=== PATIENT | female | born 2000 | race African-American/Black ===

== ENCOUNTER 2021-05-07 15:55 | Inpatient (IN) | payer OTHER ==
[2021-05-07] MEDS ORDERED: PROMETHAZINE HCL 25 MG/1 ML VIAL IVPUSH ONE (17:50)
[2021-05-07] MEDS ORDERED: BUTORPHANOL TARTRATE 1 MG/ML VIAL IVPB PRN (17:50)
[2021-05-07 17:52] VITALS: BMI 27.0
[2021-05-07] MEDS ORDERED: DEXTROSE 5%-LACTATED RINGERS 1,000 ML IV ONE (18:15)
[2021-05-07 19:08] LABS: BASO % 0.3 % (0-2.0); EOS % 2.1 % (0-4.5); HEMATOCRIT 29.7 % (32.4-45.2); LYMPH % 15.3 % (8-40); MCH 20.3 pg (25.7-33.7); MCHC 30.4 g/dl (32.0-36.0); MEAN CELL VOLUME 66.7 fl (80-96); NEUT % 75.3 % (42.8-82.8); PLATELET COUNT 225 10^3/uL (134-434); RBC 4.46 M/mm3 (3.60-5.2); RDW 20.1 % (11.6-15.6); WHITE BLOOD COUNT 12.4 K/mm3 (4.0-10.0)
[2021-05-07 19:22] LABS: INR 0.95 (0.83-1.09); PROTHROMBIN TIME (PATIENT) 11.7 SEC (9.7-13.0)
[2021-05-07 19:24] LABS: ACTIVATED PTT 27.3 SECONDS (25.2-36.5)
[2021-05-07 19:34] LABS: BLOOD UREA NITROGEN 6.4 mg/dL (7-18); CALCIUM 8.6 mg/dL (8.5-10.1)
[2021-05-07 19:38] LABS: CREATININE 0.5 mg/dL (0.55-1.3)
[2021-05-07] MEDS ORDERED: OXYTOCIN 30 UNITS in 0.9% NS 30 UNIT/500 ML INFUS.BAG IVPB SCH (20:15)
[2021-05-07 20:57] LABS: ANISOCYTOSIS 2+; MACROCYTOSIS 0; PLATELET ESTIMATE NORMAL; TARGET CELLS 1+
[2021-05-08] MEDS ORDERED: BUTORPHANOL TARTRATE 2 MG/ML VIAL ONE (00:48)
[2021-05-08] MEDS ORDERED: PROMETHAZINE HCL 25 MG/1 ML VIAL ONE (00:48)
[2021-05-08] MEDS ORDERED: AMPICILLIN - 2 GM in SODIUM CHLORIDE 100 ML IVPB ONE (01:30)
[2021-05-08] MEDS ORDERED: AMPICILLIN SODIUM 2 GM VIAL ONE (01:45)
[2021-05-08] MEDS ORDERED: AMPICILLIN SODIUM 1 GM VIAL ONE ×2 (06:02→09:54)
[2021-05-08] MEDS: ELECTROLYTE-148 SOLN 1,000 ML IV SCH ×2 (09:00→10:25)
[2021-05-08] MEDS ORDERED: PCA PUMP NR ONE (09:02)
[2021-05-08] MEDS ORDERED: FENTANYL/BUPIVACAINE/NS/PF - PCEA - 50 ML DISP.SYRIN EP ONE (09:02)
[2021-05-08] MEDS ORDERED: BUPIVACAINE HCL/PF 0.25% (2.5MG/ML) 10 ML VIAL ONE (09:08)
[2021-05-08] MEDS ORDERED: SODIUM CHLORIDE 100 ML IVPB ONE (09:54)
[2021-05-08] MEDS ORDERED: NALOXONE HCL 0.4 MG/ML VIAL IVPUSH PRN (09:56)
[2021-05-08] MEDS ORDERED: FENTANYL/BUPIVACAINE/NS/PF - PCEA - 50 ML DISP.SYRIN EP SCH (10:00)
[2021-05-08] MEDS: AMPICILLIN - 1 GM in SODIUM CHLORIDE 100 ML IVPB SCH ×2 (10:23→17:15)
[2021-05-08] MEDS ORDERED: BENZOCAINE 20% 57 GM BOTTLE TP PRN (13:22)
[2021-05-08] MEDS ORDERED: METHYLERGONOVINE MALEATE 0.2 MG/1 ML AMP IM PRN (13:22)
[2021-05-08] MEDS ORDERED: diphenhydrAMINE HCL 25 MG CAPSULE (FP) PO PRN (13:22)
[2021-05-08] MEDS ORDERED: WITCH HAZEL 50% (TUCKS) 40 PAD/JAR PAD TP PRN (13:22)
[2021-05-08] MEDS ORDERED: BENZOCAINE 28 GM HEMORRHOIDAL OINTMENT RC PRN (13:22)
[2021-05-08] MEDS ORDERED: CITRIC ACID/SODIUM CITRATE 30 ML UNIT-DOSE CUP PO ONE (13:30)
[2021-05-08] MEDS ORDERED: LIDOCAINE HCL/EPINEPHRINE/PF 10 ML VIAL ONE (13:31)
[2021-05-08] MEDS ORDERED: morphine SULFATE/PF 0.5 MG/ML (2cc Syringe - QUVA) ONE (13:37)
[2021-05-08] MEDS ORDERED: LIDOCAINE HCL/PF 2% SDV 5ML VIAL ONE ×2 (13:37→13:38)
[2021-05-08] MEDS ORDERED: OXYTOCIN 10 UNITS/ML VIAL ONE ×2 (13:38→14:05)
[2021-05-08] MEDS ORDERED: OXYTOCIN 20 UNITS in 0.9% NS 20 UNIT/1,000 ML INFUS.BAG IV SCH (13:45)
[2021-05-08] MEDS ORDERED: ceFAZolin SODIUM 1 GM VIAL ONE (13:54)
[2021-05-08] MEDS ORDERED: ONDANSETRON 4 MG/2 ML VIAL ONE (13:57)
[2021-05-08] MEDS ORDERED: morphine SULFATE/PF 0.5 MG/ML (2cc Syringe - QUVA) EP ONE (14:41)
[2021-05-08] MEDS ORDERED: ONDANSETRON 4 MG/2 ML VIAL IVPUSH PRN (14:41)
[2021-05-08 15:25] LABS: CORD BASE EXCESS -2.2 mmol/L (0-2); CORD HCO3 24.2 mmHg (20-29); CORD PCO2 47.3 mmHg (30-78); CORD pH 7.326 (7.14-7.44)
[2021-05-08 15:28] LABS: CORD BASE EXCESS -1.7 mmol/L (0-2); CORD PCO2 43.7 mmHg (30-78); CORD pH 7.357 (7.14-7.44)
[2021-05-08] MEDS: IBUPROFEN 800 MG/8 ML IJ IVPB PRN ×2 (17:40→23:08)
[2021-05-09] MEDS: IBUPROFEN 600 MG TABLET (FP) PO PRN ×2 (08:32→16:59)
[2021-05-09] MEDS: SIMETHICONE 80 MG TAB.CHEW (FP) PO PRN ×2 (08:33→17:00)
[2021-05-09] MEDS: ACETAMINOPHEN 325 MG TABLET (FP) PO PRN ×2 (08:33→17:00)
[2021-05-09 10:20] LABS: HEMATOCRIT 27.4 % (32.4-45.2); HEMOGLOBIN 8.2 GM/dL (10.7-15.3); MCH 20.1 pg (25.7-33.7); MEAN PLT VOLUME 7.7 fl (7.5-11.1); PLATELET COUNT 205 10^3/uL (134-434); RBC 4.09 M/mm3 (3.60-5.2); RDW 20.6 % (11.6-15.6); WHITE BLOOD COUNT 13.9 K/mm3 (4.0-10.0)
[2021-05-09] MEDS ORDERED: oxyCODONE HCL 5 MG TABLET PO PRN ×2 (13:22)
[2021-05-09] MEDS ORDERED: BISACODYL 10 MG SUPP.RECT PR PRN (13:22)
[2021-05-10] MEDS: IBUPROFEN 600 MG TABLET (FP) PO PRN ×2 (01:22→15:36)
[2021-05-10] MEDS: ACETAMINOPHEN 325 MG TABLET (FP) PO PRN ×2 (01:22→15:36)
[2021-05-10] MEDS ORDERED: SENNOSIDES/DOCUSATE COMBO (SENNA PLUS) TABLET (UD) PO PRN (22:00)
[2021-05-11 08:11] LABS: HEMATOCRIT 26.3 % (32.4-45.2); HEMOGLOBIN 7.9 GM/dL (10.7-15.3); MCHC 29.8 g/dl (32.0-36.0); MEAN CELL VOLUME 66.7 fl (80-96); MEAN PLT VOLUME 7.4 fl (7.5-11.1); PLATELET COUNT 244 10^3/uL (134-434); RBC 3.94 M/mm3 (3.60-5.2); RDW 20.1 % (11.6-15.6); WHITE BLOOD COUNT 11.2 K/mm3 (4.0-10.0)
[2021-05-11 08:21] LABS: MCH 19.9 pg (25.7-33.7)
[2021-05-11 09:13] VITALS: BP 123/77; PULSE 95; TEMP 98.3
[2021-05-11] MEDS: IBUPROFEN 600 MG TABLET (FP) PO PRN (12:45)
[2021-05-11] MEDS: ACETAMINOPHEN 325 MG TABLET (FP) PO PRN (12:46)
[2021-05-11] MEDS: SIMETHICONE 80 MG TAB.CHEW (FP) PO PRN (12:46)
== END 2021-05-11 12:55 | disposition home or self-care (01) | DRG 788 ==
LOC: JDEL 15:55 → JLDR 17:30 → J3W 05-08 16:25
PROVIDERS: ADMIT Obstetrics & Gynecology; ATTEND Obstetrics & Gynecology
PROC: 10D00Z1 Extraction of Products of Conception, Low, Open Approach (ICD-10-PCS; principal; 2021-05-08)
DX: O48.0 Post-term pregnancy (principal); O76 Abnormality in fetal heart rate and rhythm complicating labor and delivery; Z3A.40 40 weeks gestation of pregnancy; Z37.0 Single live birth
CPT/HCPCS: 36415; 36600; 80048; 82803; 85025; 85027; 85610; 85730; 86780; 86850; 86900; 86901; 87340; 88307-TC; C9803; U0003; U0005

== ENCOUNTER 2022-12-22 09:54 | Emergency (ER) | payer SELFPAY ==
[2022-12-22 10:02] VITALS: BP 128/78; PULSE 90; RESP 18; TEMP 98.1; BMI 20.2
[2022-12-22] MEDS ORDERED: ACETAMINOPHEN 1000 MG/100 ML BAG IVPB ONE (11:08)
[2022-12-22] MEDS ORDERED: ACETAMINOPHEN INJECTION 100 ML IVPB ONE (11:40)
[2022-12-22 12:01] LABS: BASO % 0.8 % (0-2.0); EOS % 6.2 % (0-4.5); HEMATOCRIT 41.4 % (32.4-45.2); HEMOGLOBIN 13.3 GM/dL (10.7-15.3); LYMPH % 35.3 % (8-40); MCH 27.7 pg (25.7-33.7); MCHC 32.2 g/dl (32.0-36.0); MEAN CELL VOLUME 86.2 fl (80-96); MEAN PLT VOLUME 9.7 fl (7.5-11.1); MONO % 6.3 % (3.8-10.2); NEUT % 51.4 % (42.8-82.8); PLATELET COUNT 236 10^3/uL (134-434); RDW 14.3 % (11.6-15.6); WHITE BLOOD COUNT 7.3 K/mm3 (4.0-10.0)
[2022-12-22 12:07] LABS: EPI CELLS 26 /uL (0-25.1); HYALINE CASTS 0 /uL (0-3.1); PH,URINE 5.5 (5.0-8.0); URINE APPEARANCE CLOUDY; URINE BACTERIA 140 /uL (0-1359); URINE BILIRUBIN NEGATIVE (NEGATIVE); URINE COLOR YELLOW; URINE GLUCOSE (UA) NEGATIVE (NEGATIVE); URINE KETONE TRACE (NEGATIVE); URINE LEUK ESTERASE TRACE (NEGATIVE); URINE NITRITE NEGATIVE (NEGATIVE); URINE PROTEIN 1+ (NEGATIVE); URINE RBC 2456 /uL (0-23.9); URINE WBC 28 /uL (0-25.8)
[2022-12-22 12:08] LABS: INR 1.12 (0.83-1.09)
[2022-12-22 12:10] LABS: ACTIVATED PTT 32.6 SECONDS (25.2-36.5)
[2022-12-22 12:22] LABS: BLOOD UREA NITROGEN 10.2 mg/dL (7-18); CALCIUM 9.4 mg/dL (8.5-10.1)
[2022-12-22 12:26] LABS: CREATININE 0.7 mg/dL (0.55-1.3)
[2022-12-22 12:27] LABS: BILIRUBIN,TOTAL 0.2 mg/dL (0.2-1); TOT PROT 8.1 g/dl (6.4-8.2)
== END 2022-12-22 14:44 | disposition home or self-care (01) ==
LOC: JER 09:54
PROC: 3E033GC Introduction of Other Therapeutic Substance into Peripheral Vein, Percutaneous Approach (ICD-10-PCS; principal; 2022-12-22)
DX: O20.9 Hemorrhage in early pregnancy, unspecified (principal); R10.30 Lower abdominal pain, unspecified
CPT/HCPCS: 36415; 76817-TC; 80053; 81003; 84702; 84703; 85025; 85610; 85730; 86850; 86900; 86901; 87086; 99284-25

== ENCOUNTER 2022-12-24 10:00 | Emergency (ER) | payer SELFPAY ==
[2022-12-24 10:26] VITALS: BP 101/49; PULSE 84; RESP 16; TEMP 98.1; BMI 20.2
[2022-12-24] MEDS ORDERED: ACETAMINOPHEN 500 MG TABLET (FP) PO ONE (10:50)
[2022-12-24] MEDS ORDERED: ACETAMINOPHEN 500 MG TABLET (FP) ONE (11:06)
[2022-12-24 12:36] LABS: BASO % 0.8 % (0-2.0); EOS % 4.3 % (0-4.5); HEMATOCRIT 39.3 % (32.4-45.2); HEMOGLOBIN 12.7 GM/dL (10.7-15.3); LYMPH % 47.1 % (8-40); MCHC 32.4 g/dl (32.0-36.0); MEAN CELL VOLUME 86.4 fl (80-96); MEAN PLT VOLUME 9.2 fl (7.5-11.1); MONO % 6.6 % (3.8-10.2); NEUT % 41.2 % (42.8-82.8); PLATELET COUNT 249 10^3/uL (134-434); RBC 4.55 M/mm3 (3.60-5.2); WHITE BLOOD COUNT 4.7 K/mm3 (4.0-10.0)
[2022-12-24 12:55] LABS: CALCIUM 9.3 mg/dL (8.5-10.1)
[2022-12-24 12:56] LABS: BLOOD UREA NITROGEN 10.7 mg/dL (7-18)
[2022-12-24 12:59] LABS: CREATININE 0.5 mg/dL (0.55-1.3)
== END 2022-12-24 14:12 | disposition home or self-care (01) ==
LOC: JER 10:00 → JERFT 10:00
DX: O03.9 Complete or unspecified spontaneous abortion without complication (principal)
CPT/HCPCS: 36415; 80048; 84702; 85025; 99283-25

== ENCOUNTER 2024-01-10 17:31 | Emergency (ER) | payer BC ==
[2024-01-10 17:42] VITALS: BP 110/60; PULSE 71; RESP 18; TEMP 97.9; BMI 19.6
[2024-01-10 19:05] LABS: EPI CELLS >36 /uL (0-25.1); HCG,QUALITATIVE URINE Negative; HYALINE CASTS 1 /uL (0-3.1); URINE APPEARANCE CLEAR; URINE BACTERIA >9,000 /uL (0-1359); URINE BILIRUBIN NEGATIVE (NEGATIVE); URINE COLOR YELLOW; URINE GLUCOSE (UA) NEGATIVE (NEGATIVE); URINE KETONE TRACE (NEGATIVE); URINE LEUK ESTERASE NEGATIVE (NEGATIVE); URINE NITRITE POSITIVE (NEGATIVE); URINE PROTEIN NEGATIVE (NEGATIVE); URINE RBC 4 /uL (0-23.9); URINE WBC 21 /uL (0-25.8)
[2024-01-10] MEDS ORDERED: IBUPROFEN 600 MG TABLET (FP) PO ONE (20:27)
[2024-01-10] MEDS: CEPHALEXIN MONOHYDRATE 500 MG CAPSULE (UD) PO ONE (20:34)
[2024-01-10] MEDS ORDERED: CEPHALEXIN MONOHYDRATE 500 MG CAPSULE (UD) ONE (20:34)
[2024-01-10] MEDS: IBUPROFEN 600 MG TABLET (FP) PO ONE (20:39)
== END 2024-01-10 20:39 | disposition home or self-care (01) ==
LOC: JER 17:31 → JERFT 17:31
PROC: 0H98XZZ Drainage of Buttock Skin, External Approach (ICD-10-PCS; principal; 2024-01-10)
DX: N75.0 Cyst of Bartholin's gland (principal)
CPT/HCPCS: 36415; 81003; 84703; 87086; 87186; 87491; 87591; 87661; 99283-25

== ENCOUNTER 2024-03-13 12:20 | Emergency (ER) | payer BC ==
[2024-03-13 12:42] VITALS: BP 103/62; PULSE 77; RESP 18; TEMP 99.8; BMI 19.8
== END 2024-03-13 13:57 | disposition home or self-care (01) ==
LOC: JERFT 12:20
PROC: 0U9LX0Z Drainage of Vestibular Gland with Drainage Device, External Approach (ICD-10-PCS; principal; 2024-03-13)
DX: N75.0 Cyst of Bartholin's gland (principal)
CPT/HCPCS: 99282-25

== ENCOUNTER 2024-05-03 12:40 | Emergency (ER) | payer BC ==
[2024-05-03 12:56] VITALS: BP 103/61; PULSE 68; RESP 18; TEMP 97.8; BMI 19.8
[2024-05-03 15:16] LABS: HEMOGLOBIN 12.2 GM/dL (10.7-15.3); MCH 27.9 pg (25.7-33.7); MCHC 32.9 g/dl (32.0-36.0); MEAN CELL VOLUME 84.7 fl (80-96); MEAN PLT VOLUME 8.7 fl (7.5-11.1); PLATELET COUNT 204 10^3/uL (134-434); RBC 4.37 M/mm3 (3.60-5.2); RDW 15.3 % (11.6-15.6); WHITE BLOOD COUNT 6.5 K/mm3 (4.0-10.0)
[2024-05-03] MEDS ORDERED: KETOROLAC TROMETHAMINE 15 MG/ML VIAL ONE (15:30)
[2024-05-03 15:44] LABS: POTASSIUM 3.9 mmol/L (3.5-5.1)
[2024-05-03 15:48] LABS: ALBUMIN 4.2 g/dl (3.4-5.0); BLOOD UREA NITROGEN 5.6 mg/dL (7-18); CALCIUM 9.1 mg/dL (8.5-10.1)
[2024-05-03 15:51] LABS: CREATININE 0.6 mg/dL (0.55-1.3)
[2024-05-03 15:53] LABS: BILIRUBIN,TOTAL 0.6 mg/dL (0.2-1); TOT PROT 7.7 g/dl (6.4-8.2)
[2024-05-03] MEDS: KETOROLAC TROMETHAMINE 15 MG/ML VIAL IVPUSH ONE (16:17)
[2024-05-03] MEDS: KETOROLAC TROMETHAMINE 15 MG/ML VIAL IM ONE (16:18)
[2024-05-03] MEDS: METHYLERGONOVINE MALEATE 0.2 MG TABLET (FP) PO ONE (18:14)
== END 2024-05-03 18:14 | disposition left against medical advice (07) ==
LOC: JER 12:40
PROC: 3E0333Z Introduction of Anti-inflammatory into Peripheral Vein, Percutaneous Approach (ICD-10-PCS; principal; 2024-05-03)
DX: O20.9 Hemorrhage in early pregnancy, unspecified (principal)
CPT/HCPCS: 36415; 76830-TC; 80053; 84702; 85027; 86850; 86900; 86901; 99284-25

== ENCOUNTER 2024-05-04 09:26 | Emergency (ER) | payer BC ==
[2024-05-04 09:39] VITALS: TEMP 98; BMI 19.8
[2024-05-04] MEDS: SODIUM CHLORIDE 0.9% 1000 ML INFUS.BAG IV ONE (10:07)
[2024-05-04 10:38] LABS: BASO % 0.3 % (0-2.0); EOS % 0.3 % (0-4.5); HEMATOCRIT 34.1 % (32.4-45.2); HEMOGLOBIN 11.3 GM/dL (10.7-15.3); LYMPH % 11.8 % (8-40); MCH 27.8 pg (25.7-33.7); MCHC 33.2 g/dl (32.0-36.0); MEAN CELL VOLUME 83.8 fl (80-96); MEAN PLT VOLUME 9.4 fl (7.5-11.1); MONO % 5.3 % (3.8-10.2); NEUT % 82.3 % (42.8-82.8); PLATELET COUNT 202 10^3/uL (134-434); RBC 4.08 M/mm3 (3.60-5.2); RDW 15.6 % (11.6-15.6); WHITE BLOOD COUNT 7.5 K/mm3 (4.0-10.0)
[2024-05-04 10:54] LABS: POTASSIUM 3.5 mmol/L (3.5-5.1)
[2024-05-04 10:55] LABS: ALBUMIN 3.7 g/dl (3.4-5.0); BLOOD UREA NITROGEN 9.8 mg/dL (7-18); CALCIUM 9.1 mg/dL (8.5-10.1)
[2024-05-04 10:59] LABS: CREATININE 0.8 mg/dL (0.55-1.3)
[2024-05-04 11:00] LABS: BILIRUBIN,TOTAL 0.5 mg/dL (0.2-1)
[2024-05-04] MEDS ORDERED: ACETAMINOPHEN INJECTION 100 ML IVPB ONE (12:02)
[2024-05-04] MEDS: ACETAMINOPHEN 1000 MG/100 ML BAG IVPB ONE (12:07)
[2024-05-04] MEDS ORDERED: KETOROLAC TROMETHAMINE 15 MG/ML VIAL ONE (13:58)
[2024-05-04] MEDS: KETOROLAC TROMETHAMINE 15 MG/ML VIAL IVPUSH ONE (14:01)
[2024-05-04] MEDS: METHYLERGONOVINE MALEATE 0.2 MG TABLET (FP) PO ONE (16:59)
[2024-05-04 19:00] VITALS: BP 114/60; PULSE 80; RESP 18
== END 2024-05-04 19:00 | disposition home or self-care (01) ==
LOC: JER 09:26
PROC: 3E033NZ Introduction of Analgesics, Hypnotics, Sedatives into Peripheral Vein, Percutaneous Approach (ICD-10-PCS; principal; 2024-05-04)
PROC: 3E0333Z Introduction of Anti-inflammatory into Peripheral Vein, Percutaneous Approach (ICD-10-PCS; 2024-05-04)
DX: O03.9 Complete or unspecified spontaneous abortion without complication (principal)
CPT/HCPCS: 36415; 76817-TC; 80053; 84702; 85025; 86850; 86900; 86901; 99284-25; J0131

== ENCOUNTER 2024-08-27 04:19 | Day surgery (SDC) | payer BC ==
[2024-08-26 10:34] VITALS: BMI 19.6
[2024-08-27 09:52] LABS: BASO % 0.5 % (0-2.0); EOS % 3.3 % (0-4.5); HEMATOCRIT 35.6 % (32.4-45.2); HEMOGLOBIN 11.3 GM/dL (10.7-15.3); MCH 24.5 pg (25.7-33.7); MCHC 31.7 g/dl (32.0-36.0); MEAN CELL VOLUME 77.2 fl (80-96); MEAN PLT VOLUME 9.1 fl (7.5-11.1); MONO % 8.3 % (3.8-10.2); NEUT % 70.9 % (42.8-82.8); PLATELET COUNT 236 10^3/uL (134-434); RDW 16.3 % (11.6-15.6); WHITE BLOOD COUNT 8.7 K/mm3 (4.0-10.0)
[2024-08-27 09:55] LABS: INR 1.09 (0.83-1.09); PROTHROMBIN TIME (PATIENT) 12.5 SEC (9.7-13.0)
[2024-08-27] MEDS ORDERED: PROPOFOL 20 ML ONE (09:56)
[2024-08-27] MEDS ORDERED: MIDAZOLAM HCL 2 MG/2 ML SINGLE DOSE VIAL ONE (09:57)
[2024-08-27] MEDS ORDERED: oxyCODONE HCL 5 MG TABLET PO PRN (10:08)
[2024-08-27] MEDS ORDERED: IBUPROFEN 400 MG TABLET (FP) PO PRN (10:08)
[2024-08-27 10:15] LABS: POTASSIUM 4.2 mmol/L (3.5-5.1)
[2024-08-27 10:17] LABS: ALBUMIN 3.9 g/dl (3.4-5.0); BLOOD UREA NITROGEN 6.7 mg/dL (7-18); CALCIUM 9.1 mg/dL (8.5-10.1)
[2024-08-27 10:21] LABS: CREATININE 0.7 mg/dL (0.55-1.3)
[2024-08-27 10:22] LABS: BILIRUBIN,TOTAL 0.4 mg/dL (0.2-1); TOT PROT 7.4 g/dl (6.4-8.2)
[2024-08-27] MEDS ORDERED: CEFOXITIN SODIUM 1 GM IVPB ONE (10:41)
[2024-08-27] MEDS: cefoTEtan DISODIUM 1 GM VIAL (RESTRICTED TO ID) IVPB ONE (10:43)
[2024-08-27] MEDS: LACTATED RINGERS SOLUTION 1,000 ML IV SCH (11:10)
[2024-08-27 13:27] VITALS: RESP 16
[2024-08-27] MEDS ORDERED: ACETAMINOPHEN 325 MG TABLET (FP) ONE (15:20)
[2024-08-27] MEDS: ACETAMINOPHEN 325 MG TABLET (FP) PO PRN (15:22)
[2024-08-27 16:00] VITALS: BP 106/59; PULSE 72; TEMP 97.6
== END 2024-08-27 17:21 | disposition home or self-care (01) ==
LOC: JASU-SURG 04:19
PROVIDERS: ATTEND Obstetrics & Gynecology
PROC: 0UBL0ZZ Excision of Vestibular Gland, Open Approach (ICD-10-PCS; principal; 2024-08-27 10:00)
DX: N75.1 Abscess of Bartholin's gland (principal)
CPT/HCPCS: 36415; 80053; 81025; 84702; 85025; 85610; 86850; 86900; 86901; 87070; 87205; 88304-TC; 94760

== ENCOUNTER 2024-11-12 12:09 | Emergency (ER) | payer BC ==
[2024-11-12 12:50] VITALS: BP 114/70; PULSE 84; RESP 18; TEMP 98.4
[2024-11-12] MEDS ORDERED: ONDANSETRON *ODT* 4 MG TABLET ONE (14:05)
[2024-11-12] MEDS: ONDANSETRON *ODT* 4 MG TABLET SL ONE (14:13)
[2024-11-12] MEDS ORDERED: ACETAMINOPHEN 500 MG TABLET (FP) ONE (14:22)
[2024-11-12] MEDS ORDERED: FAMOTIDINE 20 MG TABLET ONE (14:22)
[2024-11-12] MEDS: ACETAMINOPHEN 500 MG TABLET (FP) PO ONE (14:26)
[2024-11-12] MEDS: FAMOTIDINE 20 MG TABLET PO ONE (14:26)
== END 2024-11-12 17:32 | disposition home or self-care (01) ==
LOC: JER 12:09
DX: R11.2 Nausea with vomiting, unspecified (principal); R10.13 Epigastric pain; R10.33 Periumbilical pain; T62.8X1A Toxic effect of other specified noxious substances eaten as food, accidental (unintentional), initial encounter; Z20.822 Contact with and (suspected) exposure to COVID-19
CPT/HCPCS: 0241U-QW; 84703; 99283-25; Q0162

== ENCOUNTER 2025-02-06 19:49 | Emergency (ER) | payer BC ==
[2025-02-06 19:58] VITALS: BP 112/64; PULSE 74; RESP 17; TEMP 98.8
== END 2025-02-06 23:51 | disposition home or self-care (01) ==
LOC: JERFT 19:49
PROC: 0U9MXZZ Drainage of Vulva, External Approach (ICD-10-PCS; principal; 2025-02-06)
DX: N75.0 Cyst of Bartholin's gland (principal)
CPT/HCPCS: 99283-25

== ENCOUNTER 2025-04-29 22:13 | Emergency (ER) | payer SELFPAY ==
[2025-04-29 22:21] VITALS: BP 105/55; PULSE 68; RESP 18; TEMP 98.4; BMI 20.2
[2025-04-29] MEDS ORDERED: ACETAMINOPHEN 325 MG TABLET (FP) ONE (23:30)
[2025-04-29] MEDS: ACETAMINOPHEN 325 MG TABLET (FP) PO ONE (23:49)
[2025-04-30] MEDS ORDERED: SULFAMETHOXAZOLE/TRIMETHOPRIM 800MG/160MG D.S. TABLET ONE (01:23)
[2025-04-30] MEDS: SULFAMETHOXAZOLE/TRIMETHOPRIM 800MG/160MG D.S. TABLET PO ONE (01:25)
== END 2025-04-30 01:35 | disposition home or self-care (01) ==
LOC: JER 22:13
DX: N75.0 Cyst of Bartholin's gland (principal); R10.2 Pelvic and perineal pain
CPT/HCPCS: 99283-25